=== PATIENT | male | born 1995 | race Caucasian/White ===

== ENCOUNTER 2017-11-17 22:00 | Emergency (ER) | payer OTHER | END 2017-11-17 23:55 | disposition home or self-care (01) | LOC: E/R 22:00 | DX: S41.151A Open bite of right upper arm, initial encounter (principal); W54.0XXA Bitten by dog, initial encounter; Y92.9 Unspecified place or not applicable | CPT/HCPCS: 99283; Z7502 ==

== ENCOUNTER 2018-02-06 21:01 | Emergency (ER) | payer OTHER | END 2018-02-06 23:37 | disposition home or self-care (01) | LOC: FTE 23:37 | DX: S61.451A Open bite of right hand, initial encounter (principal); W54.0XXA Bitten by dog, initial encounter; Y92.9 Unspecified place or not applicable | CPT/HCPCS: 99283; Z7502 ==